=== PATIENT | female | born 1940 | race Caucasian/White ===

== ENCOUNTER 2017-05-22 20:02 | Inpatient (IN) | payer OTHER, MEDICAID ==
[~2017-05-22] VITALS: Ht 157.5 cm; Wt 68.9 kg
[~2017-05-22 20:02] MED LIST: ATOR10TA PO; BACL10TA PO; CYCL7.5T PO; DOCU100C36 PO; MECL-102 PO; NAPR500T4 PO; OMEP40CA37 PO; SUCR1TAB PO; VALS1TAB77 PO
--- NOTE | 2017-05-22 20:15 | NUR ---
JUNI CRANE at pt bedside for MSE.
[2017-05-22] MEDS ORDERED: ASPIRIN 325 MG TABLET PO ONE (20:30)
[2017-05-22] MEDS ORDERED: NITROGLYCERIN 0.4 MG/TAB BOTTLE SL ONE ×2 (20:30→20:43)
--- NOTE | 2017-05-22 20:31 | NUR ---
Pt presents w/ chief c/o chest pain/ Family at bedside. Placed on monitor and pulse ox. EKG completed.
[2017-05-22 20:38] LABS: BASOPHILS # (AUTO) 0.1 K/uL (0.0-8.0); BASOPHILS % (AUTO) 1.4 % (0.0-2.0); EOSINOPHILS # (AUTO) 0.4 K/uL (0.0-0.7); EOSINOPHILS % (AUTO) 5.5 % (0.0-7.0); HEMATOCRIT 37.7 % (31.2-41.9); HEMOGLOBIN 12.9 g/dL (10.9-14.3); LYMPHOCYTES % (AUTO) 29.3 % (20.5-51.5); MEAN CORPUSCULAR HEMOGLOBIN 32.1 uug (24.7-32.8); MEAN CORPUSCULAR HGB CONC 34 g/dL (32.3-35.6); MEAN CORPUSCULAR VOLUME 93.7 fL (75.5-95.3); MONOCYTES # (AUTO) 0.6 K/uL (2.0-10.0); MONOCYTES % (AUTO) 8.8 % (0.0-11.0); NEUTROPHILS # (AUTO) 3.8 K/uL (1.8-8.9); PLATELET COUNT (AUTO) 255 K/uL (179-408); RED BLOOD CELL COUNT(AUTO) 4.03 MIL/uL (3.63-4.92); WHITE BLOOD COUNT (AUTO) 6.9 K/uL (3.8-11.8)
[2017-05-22] MEDS ORDERED: ASPIRIN 325 MG TABLET ONE (20:43)
[2017-05-22] MEDS ORDERED: LABETALOL HCL 100 MG/20 ML VIAL IV ONE ×2 (20:45→22:15)
[2017-05-22 20:47] LABS: CARBON DIOXIDE 23 mmol/L (21-32); CHLORIDE 96 mmol/L (98-107); CREATININE 0.7 mg/dL (0.6-1.3); GLUCOSE 97 mg/dL (74-106); POTASSIUM 3.6 mmol/L (3.5-5.1); UREA NITROGEN, BLOOD 19 mg/dL (7-18)
--- NOTE | 2017-05-22 20:50 | NUR ---
patient noted with blood pressure difference in both upper extremities upon jewel stripper: @2036 - L arm 160/101 @2038- R arm 136/86 ER MD aware of issue. Reassessment pending. Patient in bed, stable. @2046- L arm 142/75 @2047- R arm 109/74 ER MD aware. Patient awaiting CTA Chest/Pelvis. Radiology aware. Consent complete in chart. Patient denies chest pain at this time. Will continue to monitor.
[2017-05-22 20:59] LABS: ALANINE AMINOTRANSFERASE 28 U/L (14-59); ALKALINE PHOSPHATASE 73 U/L (50-136); ASPARTATE AMINOTRANSFERASE 33 U/L (15-37); BILIRUBIN,DIRECT 0.1 mg/dL (0.0-0.2); BILIRUBIN,TOTAL 0.4 mg/dL (0.2-1.0); TOTAL PROTEIN, SERUM 8.1 g/dL (6.4-8.2)
[2017-05-22] MEDS ORDERED: LABETALOL HCL 100 MG/20 ML VIAL ONE (21:02)
[2017-05-22] MEDS ORDERED: IOHEXOL 350 100 ML INFUS..BTL ONE (21:11)
[2017-05-22] MEDS ORDERED: NORMAL SALINE FLUSH 10 ML DISP.SYRIN ONE (21:11)
[2017-05-22] MEDS ORDERED: ONDANSETRON 4 MG/2 ML VIAL IV ONE (21:30)
[2017-05-22] MEDS ORDERED: MORPHINE SULFATE 2 MG/1 ML DISP.SYRIN IV ONE (21:30)
[2017-05-22] MEDS ORDERED: MORPHINE SULFATE 4 MG/1 ML DISP.SYRIN ONE (21:54)
[2017-05-22] MEDS ORDERED: ONDANSETRON 4 MG/2 ML VIAL ONE (21:54)
[2017-05-22] MEDS ORDERED: NITROGLYCERIN OINT 1 GM PACKET TP ONE ×2 (22:15→22:36)
--- NOTE | 2017-05-22 22:36 | NUR ---
Pt taken down to CT accompanied by RN.
--- NOTE | 2017-05-22 23:39 | NUR ---
Mitul tong in [facility] - 05/23/[address] at [address] WALDRON SPEAKING WITH NEGRITA MERIDA.
[2017-05-23] MEDS ORDERED: NITROGLYCERIN 0.4 MG/TAB BOTTLE SL PRN (01:00)
[2017-05-23] MEDS ORDERED: MORPHINE SULFATE 2 MG/1 ML DISP.SYRIN IV PRN (01:00)
[2017-05-23] MEDS ORDERED: ONDANSETRON 4 MG/2 ML VIAL IV PRN (01:00)
[2017-05-23] MEDS: ASPIRIN 81 MG TAB.CHEW PO SCH ×2 (01:00→09:01)
--- NOTE | 2017-05-23 01:00 | NUR ---
Report given to Elizabeth SUAREZ , charge nurse for telemetry
--- NOTE | 2017-05-23 01:03 | NUR ---
ER spoke w/ Dr Castellanos. Patient is cleared for admission to Telemetry. Dx: NSTEMI. Belongings list complete. Report to non destructive evaluation manager , Elizabeth complete. Patient going to room 204.
[2017-05-23] MEDS ORDERED: VALS1TAB8 PO (01:28)
[2017-05-23] MEDS ORDERED: MECL-102 PO (01:28)
[2017-05-23] MEDS ORDERED: METH2.5T PO (01:28)
[2017-05-23] MEDS ORDERED: CARV25TA2 PO (01:28)
[2017-05-23] MEDS ORDERED: DIAZ5TAB4 PO (01:28)
[2017-05-23] MEDS ORDERED: ATOR20TA PO (01:28)
[2017-05-23] MEDS ORDERED: LORA10TA7 PO (01:28)
[2017-05-23] MEDS ORDERED: SULF500T8 PO (01:28)
[2017-05-23] MEDS ORDERED: ASPIRIN 81 MG TAB.CHEW PO ONE (01:30)
[2017-05-23] MEDS ORDERED: METOPROLOL TARTRATE 25 MG TABLET PO ONE (01:30)
--- NOTE | 2017-05-23 01:40 | NUR ---
PT ARRIVED IN TELEMETRY UNIT ALERT AWAKE AND ORIENTED WITH INVERTED T WAVES WITH OCCASSIONAL PACS. PT STATES MINOR CHEST PAIN NOW AT 3/10. ABLE TO FOLLOW SIMPLE COMMANDS WITHOUT DIFFICULTY. ON 2L/MIN VIA N/C. AWAITING ADMITTING ORDERS AT THIS TIME. CONTINUE TO MONITOR. CALL LIGHT PLACED WITHIN REACH.
[2017-05-23 02:09] VITALS: BP 133/69
[2017-05-23] MEDS: ENOXAPARIN SODIUM 80 MG/0.8 ML DISP.SYRIN SQ SCH ×2 (02:27→13:20)
[2017-05-23] MEDS ORDERED: ENOXAPARIN SODIUM 80 MG/0.8 ML DISP.SYRIN SQ ONE (02:39)
[2017-05-23] MEDS ORDERED: METOPROLOL TARTRATE 25 MG TABLET ONE (02:40)
[2017-05-23] MEDS ORDERED: ASPIRIN 81 MG TAB.CHEW ONE (02:41)
--- NOTE | 2017-05-23 03:15 | NUR ---
PT'S TROPONIN LEVELS 10.[address] RIVERA PAGED AT THIS TIME. PT DENIES ANY INCREASED CHEST PAIN AT THIS TIME. CONTINUE TO MONITOR.
--- NOTE | 2017-05-23 03:40 | NUR ---
2ND ATTEMPT MADE TO PAGE DR RIVERA REGARDING TROPONIN LEVELS.
--- NOTE | 2017-05-23 04:08 | NUR ---
DR RIVERA MADE AWARE AND STATED TO FOLLOW UP WITH CREDIT RISK ANALYST METAL MACHINE OPERATOR TO ASSESS PT IF NEEDED FURTHER FOR CARDIAC CATH. PT ASLEEP IN NO ACUTE DISTRESS AT THIS TIME.
[2017-05-23 04:32] VITALS: BP 144/72
--- NOTE | 2017-05-23 04:41 | NUR ---
DR RIVERA MADE AWARE OF RECENT STAT EKG RESULTS. STATED TO CONTINUE TO FOLLOW UP WITH DRY WALL INSTALLATIONS MECHANIC STAFF NURSE ANESTHETIST. DR RANDALL MADE AWARE OF RECENT TROPONIN LEVELS AND PT DX. DR RANDALL ASKED IF PT HAD PREVIOUSLY RECEIVED INJECTION OF LOVENOX UPON ADMISSION. STATED TO CONTINUE SAME ROUTINE ORDERED MEDICATIONS AT THIS TIME. NO NEED FOR RIGHT AWAY CARDIAC CATH BUT STATED PT MAY EVENTUALLY NEED ONE LATER ON. PT IN ROOM IN NO ACUTE DISTRESS AND DENIES ANY FURTHER CHEST PAIN AT THIS TIME. CONTINUE TO MONITOR. BP 144/72. P 56 R 20 T 98.1 AND OXYGEN 99% VIA 2L/MIN. CALL LIGHT PLACED WITHIN REACH.
--- NOTE | 2017-05-23 05:30 | NUR ---
PT IN ROOM ASLEEP IN NO ACUTE DISTRESS OR INCREASED CHEST PAIN SINCE ADMISSION. DR RIVERA AND DR CHACON AWARE OF PT'S CURRENT SITUATION. PT REMINDED TO ASK FOR ASSISTANCE WHEN NEEDED AND TO ENCOURAGE TO REQUEST FOR HEP WHEN INCREASED CHEST PAIN NOTED. CONTINUE TO MONITOR. CALL LIGHT PLACED WITHIN REACH.
--- NOTE | 2017-05-23 07:20 | NUR ---
Received client in bed awake, alert and oriented times 4. Bed at lowest position for safety, call light within reach for assistance. Client states no chest pain, just soreness. Client states a headache. No SOB noted, no apparent signs and symptoms of distress or discomfort. No IV hydration running. Three IV lines in place, 18g on both the right and left AC and one 18g on the right wrist
[2017-05-23] MEDS ORDERED: METOPROLOL TARTRATE 25 MG TABLET PO SCH ×2 (09:00→09:06)
[2017-05-23] MEDS: ACETAMINOPHEN 325 MG TABLET PO PRN ×2 (09:01→14:11)
--- NOTE | 2017-05-23 09:05 | NUR ---
DVT pump ordered
--- NOTE | 2017-05-23 09:18 | NUR ---
DVT pumps in place and running
--- NOTE | 2017-05-23 10:55 | NUR ---
Received call from lab, critical lab values for troponin are 24.663. LIFT TRUCK OPERATOR was in the room with client and the lab values were relied to her. LIFT TRUCK OPERATOR stated that she would rely the lab values to MD. Client apparent coherent, alert, awake and oriented time 4.
--- NOTE | 2017-05-23 11:02 | NUR ---
Tylenol give for headache. Client states no chest pain but feels soreness around chest area. No apparent signs and symptoms of SOB, distress or discomfort. States she would like to rest
[2017-05-23 11:20] VITALS: BP 99/50
--- NOTE | 2017-05-23 12:06 | NUR ---
Informed DONTRELL Massey to contact Dr Rivera to make sure he is aware of the increasing troponin levels and low BP
[2017-05-23] MEDS ORDERED: ASPI-605 PO (13:39)
--- NOTE | 2017-05-23 13:40 | NUR ---
Pneumococcal vaccine and influenza vaccinee ordered. aware
[2017-05-23] MEDS ORDERED: PNEUMOCOCCAL 23-VAL P-SAC VAC 0.5 ML VIAL IM ONE (13:45)
[2017-05-23] MEDS ORDERED: INFLUENZA VACCINE 2017-2018 0.5 ML DISP.SYRIN IM ONE (13:45)
--- NOTE | 2017-05-23 13:57 | NUR ---
Report given to Lucrecia at [facility]
--- NOTE | 2017-05-23 14:54 | NUR ---
Report given to Semiconductor Technician at [facility]. Client is in route to [facility] accompanied by two organ tuner and a transporter, daughter by her side and a male family member as well. Client is stable, current pain levels 3/10 headache. No chest pain. O2 via NC at 2L. No apparent signs and symptoms of SOB, distress or discomfort. Client was discharged with orders by
== END 2017-05-23 14:50 | disposition short-term general hospital (02) | DRG 280 ==
LOC: ER 20:02 → TELE 05-23 01:06
PROVIDERS: ADMIT Internal Medicine; ATTEND Nurse Practitioner Acute Care
DX: I21.4 Non-ST elevation (NSTEMI) myocardial infarction (principal); I50.33 Acute on chronic diastolic (congestive) heart failure; E87.1 Hypo-osmolality and hyponatremia; E83.51 Hypocalcemia; J98.11 Atelectasis; I11.0 Hypertensive heart disease with heart failure; Z79.899 Other long term (current) drug therapy; Z86.73 Personal history of transient ischemic attack (TIA), and cerebral infarction without residual deficits; Z90.49 Acquired absence of other specified parts of digestive tract; H81.10 Benign paroxysmal vertigo, unspecified ear; Z86.19 Personal history of other infectious and parasitic diseases; I77.819 Aortic ectasia, unspecified site; I70.0 Atherosclerosis of aorta; E78.5 Hyperlipidemia, unspecified; K40.20 Bilateral inguinal hernia, without obstruction or gangrene, not specified as recurrent; K44.9 Diaphragmatic hernia without obstruction or gangrene; K57.30 Diverticulosis of large intestine without perforation or abscess without bleeding
CPT/HCPCS: 36415; 70030-TC; 71045; 85025; 85730; 86850; 86900; 86901; 90686; 90732; 93005; 93307; A4663; J1650; J2270; J2405; J3490; Q9967

== ENCOUNTER 2018-10-11 16:57 | Inpatient (IN) | payer OTHER, MEDICAID ==
[~2018-10-11] VITALS: Ht 165.1 cm; Wt 70.5 kg
[~2018-10-11 16:57] MED LIST changes: +ASPI-605 PO; -ATOR10TA PO; +ATOR20TA PO; +CARV25TA2 PO; +DIAZ5TAB4 PO; +LORA10TA7 PO; +METH2.5T PO; +NAPR-1009 PO; -NAPR500T4 PO; +SULF500T8 PO; -VALS1TAB77 PO; +VALS1TAB8 PO
--- NOTE | 2018-10-11 17:42 | NUR ---
Dr Miles at the bedside for MSE.
[2018-10-11] MEDS ORDERED: IV NORMAL SALINE 500 ML BAG IV ONE (17:45)
[2018-10-11 18:03] LABS: BASOPHILS # (AUTO) 0.1 K/uL (0.0-8.0); BASOPHILS % (AUTO) 1.4 % (0.0-2.0); EOSINOPHILS # (AUTO) 0.2 K/uL (0.0-0.7); EOSINOPHILS % (AUTO) 3.1 % (0.0-7.0); HEMATOCRIT 35.4 % (31.2-41.9); HEMOGLOBIN 11.8 g/dL (10.9-14.3); LYMPHOCYTES # (AUTO) 1.8 K/uL (20.0-40.0); LYMPHOCYTES % (AUTO) 31.6 % (20.5-51.5); MEAN CORPUSCULAR HEMOGLOBIN 30.4 uug (24.7-32.8); MEAN CORPUSCULAR HGB CONC 33 g/dL (32.3-35.6); MEAN CORPUSCULAR VOLUME 91.4 fL (75.5-95.3); MONOCYTES # (AUTO) 0.7 K/uL (2.0-10.0); MONOCYTES % (AUTO) 11.4 % (0.0-11.0); NEUTROPHILS % (AUTO) 52.5 % (38.5-71.5); PLATELET COUNT (AUTO) 252 K/uL (179-408); RED BLOOD CELL COUNT(AUTO) 3.87 MIL/uL (3.63-4.92); WHITE BLOOD COUNT (AUTO) 5.8 K/uL (3.8-11.8)
[2018-10-11 18:11] LABS: CARBON DIOXIDE 24 mmol/L (21-32); CHLORIDE 96 mmol/L (98-107); CREATININE 0.8 mg/dL (0.6-1.3); GLUCOSE 95 mg/dL (74-106); POTASSIUM 3.3 mmol/L (3.5-5.1); UREA NITROGEN, BLOOD 13 mg/dL (7-18)
[2018-10-11 18:28] LABS: ALANINE AMINOTRANSFERASE 39 U/L (14-59); ALKALINE PHOSPHATASE 59 U/L (50-136); ASPARTATE AMINOTRANSFERASE 43 U/L (15-37); BILIRUBIN,DIRECT 0.2 mg/dL (0.0-0.2); BILIRUBIN,TOTAL 0.8 mg/dL (0.2-1.0); TOTAL PROTEIN, SERUM 7.6 g/dL (6.4-8.2)
[2018-10-11] MEDS ORDERED: ASPIRIN 81 MG TAB.CHEW PO ONE (18:30)
[2018-10-11] MEDS ORDERED: ASPIRIN 81 MG TAB.CHEW ONE (18:35)
--- NOTE | 2018-10-11 18:42 | NUR ---
Dr Miles spoke to Dr Trimble for admit. Awaiting for insurance clearance.
[2018-10-11] MEDS ORDERED: HYDR-4077 PO (18:55)
[2018-10-11] MEDS ORDERED: LOSA1TAB39 PO (18:55)
[2018-10-11] MEDS ORDERED: METR-147 PO (18:55)
[2018-10-11] MEDS ORDERED: LORA1TAB PO (18:55)
[2018-10-11] MEDS ORDERED: FOLI1TAB16 PO (18:56)
[2018-10-11] MEDS ORDERED: OXYB5TAB PO (18:56)
--- NOTE | 2018-10-11 18:59 | NUR ---
Report given to Lazaro SUAREZ night nurse.
[2018-10-11] MEDS ORDERED: ONDANSETRON 4 MG/2 ML VIAL IV PRN (19:00)
[2018-10-11] MEDS ORDERED: NITROGLYCERIN 0.4 MG/TAB BOTTLE SL PRN (19:00)
[2018-10-11 20:30] LABS: *BILIRUBIN,URIN NEGATIVE (NEGATIVE); *BLOOD, URINE 2+ (NEGATIVE); *CLARITY,URINE SLIGHTLY CLOUDY (CLEAR); *COLOR,URINE YELLOW (YELLOW); *KETONES,URINE NEGATIVE (NEGATIVE); *UROBILINOGEN,URINE 0.2 E.U./dl (NORMAL); LEUKOCYTE ESTERASE ,URINE 2+ (NEGATIVE); NITRITE, URINE NEGATIVE (NEGATIVE); PH,URINE 6.5 (5.0-8.0); UGLUCOSE NEGATIVE (NEGATIVE)
[2018-10-11 20:48] LABS: BACTERIA,URINE MANY /HPF (NONE SEEN); SQUAMOUS EPITHELIAL CELL,UR FEW /HPF (NONE SEEN)
--- NOTE | 2018-10-11 20:52 | NUR ---
Patient transferred to [facility] in stable condition.
[2018-10-11 21:13] VITALS: BP 171/87
--- NOTE | 2018-10-11 21:15 | NUR ---
Received patient from ER. Dx: NSTEMI. Patient is A/Ox4. Patient is Lithuanian speaking, but can understand most Gambian. Belongings list and belongings brought with patient. Medications brought with patient. Heplock on the left AC is intact and patent. Skin is intact. Patient is able to ambulate, but instructed patient that since she had a near syncopal episode to call before she gets up to go to the restroom. Safety measures initiated. Bed is low and locked call light within reach. Oriented patient to room and unit. Will continue with admission process.
[2018-10-11] MEDS: METOPROLOL TARTRATE 25 MG TABLET PO SCH (21:32)
[2018-10-12 00:03] VITALS: BP 120/63
[2018-10-12 04:10] VITALS: BP 122/64
--- NOTE | 2018-10-12 05:48 | NUR ---
Patient slept well throughout shift. No signs of acute distress noted. No complaints of pain or SOB. Patient was able to ambulate to restroom with steady gait. Vitals are WNL. Patient is a-fib controlled on the TELE monitor with HR at 62 BPM. All needs were met. Safety measures given.
[2018-10-12 06:31] LABS: BASOPHILS # (AUTO) 0.1 K/uL (0.0-8.0); BASOPHILS % (AUTO) 1.6 % (0.0-2.0); EOSINOPHILS # (AUTO) 0.2 K/uL (0.0-0.7); EOSINOPHILS % (AUTO) 4.9 % (0.0-7.0); HEMATOCRIT 35.3 % (31.2-41.9); HEMOGLOBIN 11.7 g/dL (10.9-14.3); LYMPHOCYTES # (AUTO) 1.5 K/uL (20.0-40.0); LYMPHOCYTES % (AUTO) 31.6 % (20.5-51.5); MEAN CORPUSCULAR HEMOGLOBIN 30.4 uug (24.7-32.8); MEAN CORPUSCULAR HGB CONC 33 g/dL (32.3-35.6); MEAN CORPUSCULAR VOLUME 91.6 fL (75.5-95.3); MONOCYTES # (AUTO) 0.5 K/uL (2.0-10.0); MONOCYTES % (AUTO) 9.5 % (0.0-11.0); NEUTROPHILS # (AUTO) 2.5 K/uL (1.8-8.9); NEUTROPHILS % (AUTO) 52.4 % (38.5-71.5); PLATELET COUNT (AUTO) 237 K/uL (179-408); RED BLOOD CELL COUNT(AUTO) 3.85 MIL/uL (3.63-4.92); WHITE BLOOD COUNT (AUTO) 4.8 K/uL (3.8-11.8)
[2018-10-12 06:43] LABS: CARBON DIOXIDE 24 mmol/L (21-32); CHLORIDE 102 mmol/L (98-107); CHOLESTEROL 126 mg/dL (<200); CREATININE 0.8 mg/dL (0.6-1.3); GLUCOSE 78 mg/dL (74-106); HDL CHOLESTEROL 59 mg/dL (40-60); MAGNESIUM 1.6 mg/dL (1.8-2.4); PHOSPHOROUS 4.2 mg/dL (2.5-4.9); POTASSIUM 3.6 mmol/L (3.5-5.1); TRIGLYCERIDES 74 MG/DL (30-150); UREA NITROGEN, BLOOD 13 mg/dL (7-18)
[2018-10-12] MEDS: METOPROLOL TARTRATE 25 MG TABLET PO SCH (08:28)
[2018-10-12] MEDS ORDERED: ASPIRIN 81 MG TAB.CHEW PO SCH (09:00)
[2018-10-12] MEDS: MAGNESIUM SULFATE/D5W 100 ML IV SCH ×2 (10:05→11:16)
[2018-10-12] MEDS ORDERED: MECLIZINE HCL 25 MG TABLET PO PRN (10:15)
[2018-10-12] MEDS ORDERED: METHOTREXATE SODIUM 2.5 MG TABLET PO SCH (10:15)
[2018-10-12] MEDS ORDERED: HYDROCHLOROTHIAZIDE 25 MG TABLET PO SCH (10:29)
[2018-10-12] MEDS: LEVOFLOXACIN 500 MG TABLET PO SCH (10:43)
[2018-10-12] MEDS: LOSARTAN POTASSIUM 50 MG TABLET PO SCH (10:44)
[2018-10-12] MEDS: CARVEDILOL 12.5 MG TABLET PO SCH ×2 (10:55→17:10)
[2018-10-12] MEDS: APIXABAN 5 MG TABLET PO SCH ×2 (11:17→17:11)
[2018-10-12 12:07] VITALS: BP 123/70
[2018-10-12] MEDS ORDERED: hydrALAZINE HCL 50 MG TABLET PO SCH (14:00)
[2018-10-12 15:45] VITALS: BP 109/66
[2018-10-12] MEDS ORDERED: METRONIDAZOLE 500 MG TABLET PO SCH (17:00)
[2018-10-12] MEDS ORDERED: CARVEDILOL 25 MG TABLET PO SCH (17:00)
--- NOTE | 2018-10-12 19:00 | NUR ---
Patient is AO4, No signs of acute distress noted. No complaints of pain or SOB. Patient was able to ambulate to restroom with steady gait. Vitals are WNL. Patient is a-fib controlled on the TELE monitor with HR at 60-70 BPM. Safety maintained
--- NOTE | 2018-10-12 19:20 | NUR ---
RECEIVED PT AWAKE. ALERT AND ORIENTEDX4. PT SHOWS NO SIGNS OF ACUTE DISTRESS. IV INTACT. SAFETY AND COMFORT PROVIDED. WILL CONTINUE TO MONITOR.
[2018-10-12 20:01] VITALS: BP 112/66
[2018-10-12] MEDS: ATORVASTATIN 20 MG TABLET PO SCH (20:23)
[2018-10-13] VITALS: BP 125/74
[2018-10-13 04:00] VITALS: BP 139/78
[2018-10-13] MEDS: LEVOFLOXACIN 500 MG TABLET PO SCH (05:26)
[2018-10-13] MEDS ORDERED: MAGNESIUM HYDROXIDE 30 ML LIQUID UDC PO PRN (05:30)
--- NOTE | 2018-10-13 06:03 | NUR ---
PT SLEPT THROUGHOUT THE SHIFT. PT SHOWS NO SIGNS OF ACUTE DISTRESS. PRESCRIBED MEDICATION GIVEN AND PT TOLERATED IT WELL. DR. CALHOUN ORDERED MILK OF MAGNESIA AT 2200H BECAUSE PT COMPLAINING SHE DOESN'T HAVE ANY BOWEL MOVEMENT FOR 3 DAYS. GAVE ALSO PRUNE JUICE TO HELP HER . PT COMPLIANT WITH CARE. SAFETY AND COMFORT PROVIDED. ALL NEEDS ARE MET. WILL ENDORSE ACCORDINGLY TO INCOMING NURSE FOR CONTINUITY OF CARE.
[2018-10-13 06:38] LABS: CARBON DIOXIDE 25 mmol/L (21-32); CHLORIDE 101 mmol/L (98-107); CREATININE 0.8 mg/dL (0.6-1.3); GLUCOSE 81 mg/dL (74-106); MAGNESIUM 1.8 mg/dL (1.8-2.4); POTASSIUM 3.6 mmol/L (3.5-5.1); UREA NITROGEN, BLOOD 14 mg/dL (7-18)
--- NOTE | 2018-10-13 07:30 | NUR ---
PATIENT AO4, PT SHOWS NO SIGNS OF ACUTE DISTRESS. SAFETY AND COMFORT REINFORCED. CONTINUITY OF CARE.
[2018-10-13] MEDS: LOSARTAN POTASSIUM 50 MG TABLET PO SCH (08:06)
[2018-10-13] MEDS: CARVEDILOL 12.5 MG TABLET PO SCH ×2 (08:06→17:03)
[2018-10-13] MEDS: APIXABAN 5 MG TABLET PO SCH ×2 (08:07→17:03)
[2018-10-13] MEDS: OXYBUTYNIN XL 5 MG TABSR PO SCH (08:07)
[2018-10-13] MEDS: LORATADINE 10 MG TABLET PO SCH (08:07)
[2018-10-13] MEDS ORDERED: FOLIC ACID 1 MG TABLET PO SCH (09:00)
[2018-10-13] MEDS ORDERED: LORAZEPAM 1 MG TABLET PO PRN (09:00)
[2018-10-13] MEDS ORDERED: Medication Not On Formulary EA (Losartan/Hydrochlorothiazide (Losartan-Hctz 100-25 Mg Ta PO SCH (09:00)
[2018-10-13 11:30] VITALS: BP 102/60
[2018-10-13 16:10] VITALS: BP 125/61
[2018-10-13] MEDS ORDERED: HYDROCODONE/APAP 5-325MG TABLET PO PRN (16:45)
--- NOTE | 2018-10-13 18:37 | NUR ---
PATIENT AO4, PT SHOWS NO SIGNS OF ACUTE DISTRESS. PATIENT COMPLAINED OF PAIN IN LOWER EXTREMITIES AND ORDER FROM DONTRELL BARAHONA WAS RECEIVED (NORCO IS GIVEN AND WORKED WELL) DVT STUDIES ARE DONE AND NEGATIVE SAFETY AND COMFORT MAINTAINED
--- NOTE | 2018-10-13 19:30 | NUR ---
patient received lying in bed with family at bedside. no signs of acute distress at this time. safety and comfort measures provided. will continue care.
[2018-10-13 20:16] VITALS: BP 125/63
[2018-10-13] MEDS: ATORVASTATIN 20 MG TABLET PO SCH (20:22)
[2018-10-14 00:17] VITALS: BP 105/47
[2018-10-14] MEDS: LEVOFLOXACIN 500 MG TABLET PO SCH (05:22)
--- NOTE | 2018-10-14 05:52 | NUR ---
patient intermittently sleeping. iv intact and patent. all medications administered and tolerated. safety and comfort measures provided. will endorse care to morning nurse.
[2018-10-14 05:58] VITALS: BP 116/62
[2018-10-14 06:35] LABS: BASOPHILS # (AUTO) 0.1 K/uL (0.0-8.0); BASOPHILS % (AUTO) 1.4 % (0.0-2.0); EOSINOPHILS # (AUTO) 0.5 K/uL (0.0-0.7); HEMOGLOBIN 11.8 g/dL (10.9-14.3); LYMPHOCYTES % (AUTO) 34.3 % (20.5-51.5); MEAN CORPUSCULAR HEMOGLOBIN 30.8 uug (24.7-32.8); MEAN CORPUSCULAR HGB CONC 34 g/dL (32.3-35.6); MEAN CORPUSCULAR VOLUME 91.6 fL (75.5-95.3); MONOCYTES # (AUTO) 0.6 K/uL (2.0-10.0); MONOCYTES % (AUTO) 10.3 % (0.0-11.0); NEUTROPHILS # (AUTO) 2.7 K/uL (1.8-8.9); PLATELET COUNT (AUTO) 236 K/uL (179-408); RED BLOOD CELL COUNT(AUTO) 3.82 MIL/uL (3.63-4.92); WHITE BLOOD COUNT (AUTO) 5.9 K/uL (3.8-11.8)
[2018-10-14 06:51] LABS: CARBON DIOXIDE 24 mmol/L (21-32); CHLORIDE 102 mmol/L (98-107); CREATININE 0.9 mg/dL (0.6-1.3); GLUCOSE 75 mg/dL (74-106); UREA NITROGEN, BLOOD 16 mg/dL (7-18)
--- NOTE | 2018-10-14 07:15 | NUR ---
patient received lying in bed . no signs of acute distress at this time. safety and comfort measures provided. will continue care. vs are stable
[2018-10-14] MEDS: LORATADINE 10 MG TABLET PO SCH (08:01)
[2018-10-14] MEDS: CARVEDILOL 12.5 MG TABLET PO SCH ×2 (08:02→18:00)
[2018-10-14] MEDS: APIXABAN 5 MG TABLET PO SCH ×2 (08:04→16:14)
[2018-10-14] MEDS: OXYBUTYNIN XL 5 MG TABSR PO SCH (08:06)
[2018-10-14] MEDS ORDERED: NITROFURANTOIN/NITROFURAN MAC 100 MG CAPSULE PO SCH (09:00)
[2018-10-14] MEDS ORDERED: LOSARTAN POTASSIUM 25 MG TABLET PO SCH (09:00)
[2018-10-14] MEDS ORDERED: LOSARTAN POTASSIUM 50 MG TABLET PO SCH (09:00)
[2018-10-14] MEDS ORDERED: CARV12.5 PO (10:20)
[2018-10-14] MEDS ORDERED: LOSA25TA27 PO (10:20)
[2018-10-14] MEDS ORDERED: NITR100C6 PO (10:20)
[2018-10-14] MEDS ORDERED: ATOR20TA PO (10:20)
[2018-10-14] MEDS ORDERED: APIX5TAB PO (10:20)
[2018-10-14 12:06] VITALS: BP 118/61
[2018-10-14 15:10] VITALS: BP 108/76
[2018-10-14 18:00] VITALS: BP 108/50
--- NOTE | 2018-10-14 18:23 | NUR ---
dc orders received noted and carried out,dc heplock per md orders.dc instruction given to the pt and family ,pt left the facility via private car in stable condition
[2018-10-15] MEDS ORDERED: METHOTREXATE SODIUM 2.5 MG TABLET PO SCH (09:00)
== END 2018-10-14 18:30 | disposition home or self-care (01) | DRG 281 ==
LOC: ER 16:57 → TELE3 20:41 → MEDSURG3 10-13 20:00
PROVIDERS: ADMIT Internal Medicine; ATTEND Internal Medicine
DX: I48.92 Unspecified atrial flutter (principal); I21.A1 Myocardial infarction type 2; N39.0 Urinary tract infection, site not specified; E44.0 Moderate protein-calorie malnutrition; D68.59 Other primary thrombophilia; J98.11 Atelectasis; I48.91 Unspecified atrial fibrillation; R55 Syncope and collapse; E87.6 Hypokalemia; Z79.82 Long term (current) use of aspirin; I25.5 Ischemic cardiomyopathy; I25.2 Old myocardial infarction; E78.5 Hyperlipidemia, unspecified; B96.20 Unspecified Escherichia coli [E. coli] as the cause of diseases classified elsewhere; Z16.12 Extended spectrum beta lactamase (ESBL) resistance; M06.9 Rheumatoid arthritis, unspecified; Z79.01 Long term (current) use of anticoagulants; Z86.73 Personal history of transient ischemic attack (TIA), and cerebral infarction without residual deficits; Z68.25 Body mass index [BMI] 25.0-25.9, adult; I25.10 Atherosclerotic heart disease of native coronary artery without angina pectoris; I10 Essential (primary) hypertension; E78.00 Pure hypercholesterolemia, unspecified
CPT/HCPCS: 36415; 70030-TC; 70450; 71045; 83605; 83735; 84100; 84443; 85025; 85730; 87040; 87077; 87086; 93005; 97110; 97116; 97530; A4663; G0378; J3475; J7040; J7050; J8597; J8610

== ENCOUNTER 2019-02-12 20:09 | Inpatient (IN) | payer MEDICARE, MEDICAID ==
[~2019-02-12] VITALS: Ht 160 cm; Wt 63.2 kg
[~2019-02-12 20:09] MED LIST changes: +APIX5TAB PO; -ASPI-605 PO; -BACL10TA PO; +CARV12.5 PO; -CYCL7.5T PO; -DIAZ5TAB4 PO; -DOCU100C36 PO; +FOLI1TAB16 PO; +LORA1TAB PO; +LOSA25TA27 PO; -NAPR-1009 PO; +NITR100C6 PO; -OMEP40CA37 PO; +OXYB5TAB4 PO; -SUCR1TAB PO; -SULF500T8 PO; -VALS1TAB8 PO
--- NOTE | 2019-02-12 20:26 | NUR ---
patient came from home. Chief complaint of generalized weakness and loss of energy that started today at 0800. patient stated her last meal was today at 1130. patient was not able to tolerare any PO intake. patient also stated she hasn't been able to produce a bowel movement within the last 3 days. Patient is alert and oriented x4. patient denies any pain/discomfort/respiratory distress at this time.
[2019-02-12] MEDS ORDERED: HYDR-4077 PO (20:29)
[2019-02-12] MEDS ORDERED: LORA1TAB PO (20:29)
[2019-02-12] MEDS ORDERED: DIFL5DRO OP (20:30)
[2019-02-12 20:59] LABS: BASOPHILS # (AUTO) 0.1 K/uL (0.0-8.0); BASOPHILS % (AUTO) 1.1 % (0.0-2.0); EOSINOPHILS # (AUTO) 0.1 K/uL (0.0-0.7); EOSINOPHILS % (AUTO) 2.2 % (0.0-7.0); HEMATOCRIT 37.2 % (31.2-41.9); HEMOGLOBIN 12.5 g/dL (10.9-14.3); LYMPHOCYTES # (AUTO) 1.7 K/uL (20.0-40.0); LYMPHOCYTES % (AUTO) 29.3 % (20.5-51.5); MEAN CORPUSCULAR HEMOGLOBIN 32.4 uug (24.7-32.8); MEAN CORPUSCULAR HGB CONC 34 g/dL (32.3-35.6); MEAN CORPUSCULAR VOLUME 96.5 fL (75.5-95.3); MONOCYTES # (AUTO) 0.5 K/uL (2.0-10.0); MONOCYTES % (AUTO) 9.5 % (0.0-11.0); NEUTROPHILS # (AUTO) 3.3 K/uL (1.8-8.9); NEUTROPHILS % (AUTO) 57.9 % (38.5-71.5); PLATELET COUNT (AUTO) 214 K/uL (179-408); RED BLOOD CELL COUNT(AUTO) 3.86 MIL/uL (3.63-4.92); WHITE BLOOD COUNT (AUTO) 5.7 K/uL (3.8-11.8)
[2019-02-12 21:00] LABS: CREATININE 0.7 mg/dL (0.6-1.3); POTASSIUM 3.4 mmol/L (3.5-5.1)
[2019-02-12 21:06] LABS: *BILIRUBIN,URIN NEGATIVE (NEGATIVE); *BLOOD, URINE NEGATIVE (NEGATIVE); *CLARITY,URINE SLIGHTLY CLOUDY (CLEAR); *COLOR,URINE YELLOW (YELLOW); *KETONES,URINE NEGATIVE (NEGATIVE); *UROBILINOGEN,URINE 0.2 E.U./dl (NORMAL); LEUKOCYTE ESTERASE ,URINE 1+ (NEGATIVE); NITRITE, URINE NEGATIVE (NEGATIVE); UGLUCOSE NEGATIVE (NEGATIVE)
[2019-02-12 21:12] LABS: BILIRUBIN,DIRECT 0.2 mg/dL (0.0-0.2); BILIRUBIN,TOTAL 0.8 mg/dL (0.2-1.0); TOTAL PROTEIN, SERUM 7.2 g/dL (6.4-8.2)
[2019-02-12 21:15] LABS: BACTERIA,URINE MODERATE /HPF (NONE SEEN); MUCUS,URINE FEW /LPF (0-FEW); SQUAMOUS EPITHELIAL CELL,UR MANY /HPF (NONE SEEN)
[2019-02-12] MEDS ORDERED: NITROGLYCERIN OINT 1 GM PACKET TP ONE ×2 (21:17→21:30)
[2019-02-12] MEDS ORDERED: ASPIRIN 81 MG TAB.CHEW ONE (21:17)
--- NOTE | 2019-02-12 21:25 | NUR ---
Call placed to [facility], Jovani Sewell (DONTRELL) has been paged.
[2019-02-12] MEDS ORDERED: ASPIRIN 81 MG TAB.CHEW PO ONE (21:30)
[2019-02-12] MEDS ORDERED: CEFTRIAXONE /D5W 50ML IVPB **ER PYXIS IV ONE (21:33)
[2019-02-12] MEDS ORDERED: CEFTRIAXONE 1 G in IV DEXTROSE 5% 50 ML IV ONE (21:45)
--- NOTE | 2019-02-12 21:51 | NUR ---
VERONICA spoke to Micrima.
--- NOTE | 2019-02-12 21:59 | NUR ---
report given to ERICK Conley.
--- NOTE | 2019-02-12 22:01 | NUR ---
Jovani Sewell BODY TEAM MEMBER at bedside speaking to patient.
[2019-02-12] MEDS ORDERED: LORAZEPAM 1 MG TABLET PO PRN (22:30)
[2019-02-12] MEDS ORDERED: Z GUARD REMEDY PASTE 57 GM TUBE TOP PRN (22:30)
[2019-02-12] MEDS ORDERED: MAGNESIUM HYDROXIDE 30 ML LIQUID UDC PO PRN (22:30)
[2019-02-12] MEDS ORDERED: ONDANSETRON 4 MG/2 ML VIAL IV PRN (22:30)
[2019-02-12] MEDS ORDERED: ACETAMINOPHEN 325 MG TABLET PO PRN (22:30)
[2019-02-12] MEDS ORDERED: HYDROCODONE/APAP 5-325MG TABLET PO PRN (22:30)
[2019-02-12 22:39] VITALS: BP 149/76
[2019-02-12] MEDS ORDERED: MEROPENEM 0.5 G in IV NORMAL SALINE 50 ML IV SCH (23:30)
[2019-02-13 00:33] VITALS: BP 134/84
[2019-02-13] MEDS ORDERED: MEROPENEM 500 MG VIAL IV ONE (00:38)
[2019-02-13] MEDS ORDERED: MEROPENEM 0.5 G in IV NORMAL SALINE 50 ML IV SCH ×2 (01:30→06:00)
[2019-02-13 04:45] VITALS: BP 150/85
[2019-02-13 05:47] LABS: BASOPHILS # (AUTO) 0.1 K/uL (0.0-8.0); BASOPHILS % (AUTO) 2.3 % (0.0-2.0); EOSINOPHILS # (AUTO) 0.1 K/uL (0.0-0.7); EOSINOPHILS % (AUTO) 2.4 % (0.0-7.0); HEMATOCRIT 36.4 % (31.2-41.9); HEMOGLOBIN 12.3 g/dL (10.9-14.3); LYMPHOCYTES # (AUTO) 1.6 K/uL (20.0-40.0); LYMPHOCYTES % (AUTO) 33.6 % (20.5-51.5); MEAN CORPUSCULAR HEMOGLOBIN 32.5 uug (24.7-32.8); MEAN CORPUSCULAR HGB CONC 34 g/dL (32.3-35.6); MEAN CORPUSCULAR VOLUME 96.1 fL (75.5-95.3); MONOCYTES # (AUTO) 0.4 K/uL (2.0-10.0); MONOCYTES % (AUTO) 9.1 % (0.0-11.0); NEUTROPHILS # (AUTO) 2.5 K/uL (1.8-8.9); NEUTROPHILS % (AUTO) 52.6 % (38.5-71.5); PLATELET COUNT (AUTO) 189 K/uL (179-408); RED BLOOD CELL COUNT(AUTO) 3.78 MIL/uL (3.63-4.92); WHITE BLOOD COUNT (AUTO) 4.8 K/uL (3.8-11.8)
--- NOTE | 2019-02-13 05:56 | NUR ---
patient received from ER. a/o x2. no signs of acute distress and v/s stable throughout shift. safety and comfort measures provided at all times. denies chest pain. ID band on. IV intact and patent. belongings list completed and signed. all medications administered and tolerated well. belongings list signed. a/o x2.
[2019-02-13 06:04] LABS: CREATININE 0.7 mg/dL (0.6-1.3); MAGNESIUM 1.6 mg/dL (1.8-2.4); PHOSPHOROUS 3.7 mg/dL (2.5-4.9); POTASSIUM 3.3 mmol/L (3.5-5.1)
[2019-02-13] MEDS: MEROPENEM 0.5 G in IV NORMAL SALINE 50 ML IV SCH ×3 (08:42→23:30)
[2019-02-13] MEDS: hydrALAZINE HCL 50 MG TABLET PO SCH ×3 (08:42→17:18)
[2019-02-13] MEDS: CARVEDILOL 12.5 MG TABLET PO SCH ×2 (08:42→17:18)
[2019-02-13] MEDS ORDERED: APIXABAN 5 MG TABLET PO ONE (09:00)
[2019-02-13] MEDS ORDERED: POTASSIUM CHLORIDE 20 MEQ POWDER PACKET PO ONE (10:45)
[2019-02-13] MEDS ORDERED: INFLUENZA VACCINE 2019-2020 0.5 ML DISP.SYRIN IM ONE (11:00)
[2019-02-13 11:40] VITALS: BP 94/60
[2019-02-13] MEDS: MAGNESIUM SULFATE/D5W 100 ML IV SCH ×2 (13:24→15:50)
[2019-02-13 15:54] VITALS: BP 141/67
[2019-02-13 19:48] VITALS: BP 98/48
[2019-02-13] MEDS ORDERED: MOXI3DRO10 RIGHTEYE (20:08)
[2019-02-13] MEDS ORDERED: NEPA1.7D OP (20:08)
[2019-02-13] MEDS ORDERED: PRED5DRO16 RIGHTEYE (20:08)
[2019-02-13] MEDS ORDERED: BESI5DRO EACHEYE (20:08)
[2019-02-13] MEDS ORDERED: DIFL5DRO OP (20:08)
[2019-02-13] MEDS ORDERED: CEFTRIAXONE 1 G in IV DEXTROSE 5% 50 ML IV SCH (21:00)
[2019-02-13] MEDS: ATORVASTATIN 20 MG TABLET PO SCH (21:17)
[2019-02-14] VITALS (8 sets, daily range): BP systolic 108–129; BP diastolic 54–78
[2019-02-14 06:51] LABS: BASOPHILS # (AUTO) 0.1 K/uL (0.0-8.0); BASOPHILS % (AUTO) 1.2 % (0.0-2.0); EOSINOPHILS # (AUTO) 0.2 K/uL (0.0-0.7); HEMATOCRIT 36.1 % (31.2-41.9); HEMOGLOBIN 12.2 g/dL (10.9-14.3); LYMPHOCYTES # (AUTO) 1.8 K/uL (20.0-40.0); LYMPHOCYTES % (AUTO) 35.3 % (20.5-51.5); MEAN CORPUSCULAR HEMOGLOBIN 32.9 uug (24.7-32.8); MEAN CORPUSCULAR HGB CONC 34 g/dL (32.3-35.6); MEAN CORPUSCULAR VOLUME 97.8 fL (75.5-95.3); MONOCYTES # (AUTO) 0.4 K/uL (2.0-10.0); MONOCYTES % (AUTO) 8.2 % (0.0-11.0); NEUTROPHILS # (AUTO) 2.7 K/uL (1.8-8.9); NEUTROPHILS % (AUTO) 52.3 % (38.5-71.5); PLATELET COUNT (AUTO) 195 K/uL (179-408); RED BLOOD CELL COUNT(AUTO) 3.69 MIL/uL (3.63-4.92); WHITE BLOOD COUNT (AUTO) 5.1 K/uL (3.8-11.8)
--- NOTE | 2019-02-14 06:58 | NUR ---
Pt resting well in between care; no acute distress; repositioned for comfort; assisted to meet hygiene needs; needs assisted; safety maintained; eye drops received and family gave it to her initially;sent to the pharmacy including [facility];
[2019-02-14 07:05] LABS: THYROID STIMULATING HORMONE 4.026 mIU/mL (0.358-3.740)
[2019-02-14 07:25] LABS: CREATININE 0.7 mg/dL (0.6-1.3)
[2019-02-14] MEDS ORDERED: INFLUENZA VACCINE 2019-2020 0.5 ML DISP.SYRIN IM ONE (07:30)
--- NOTE | 2019-02-14 08:00 | NUR ---
Pt on ABX Merrem. Pt prefers to have flu shot prior to discharge. Awaiting eyedrops medication for her cataract surgery right eye. Pt denies any c/o pain. Legs elevated +1 edema noted. PT is in no acute distress. IV intact.
[2019-02-14] MEDS: MEROPENEM 0.5 G in IV NORMAL SALINE 50 ML IV SCH ×3 (08:22→23:37)
[2019-02-14] MEDS: hydrALAZINE HCL 50 MG TABLET PO SCH ×3 (08:28→16:33)
[2019-02-14] MEDS: CARVEDILOL 12.5 MG TABLET PO SCH ×2 (08:29→16:33)
[2019-02-14] MEDS ORDERED: DUREZOL LEFTEYE PRN (09:00)
[2019-02-14] MEDS ORDERED: APIXABAN 5 MG TABLET PO ONE (09:00)
[2019-02-14] MEDS ORDERED: prednisoLONE ACET 1% OPHT DROP 5 ML BOTTLE LEFTEYE SCH (09:00)
[2019-02-14] MEDS ORDERED: FOLIC ACID 1 MG TABLET PO SCH (09:00)
[2019-02-14] MEDS: MOXIFLOXACIN 0.5% RIGHTEYE SCH ×4 (10:00→20:31)
[2019-02-14] MEDS: BESIVANCE LEFTEYE SCH ×3 (10:01→16:35)
[2019-02-14] MEDS: PREDNISOLONE 1% RIGHTEYE SCH ×4 (10:01→20:31)
[2019-02-14] MEDS ORDERED: BISACODYL 10 MG SUPP.RECT RC ONE (10:30)
[2019-02-14] MEDS: DOCUSATE SODIUM 100 MG CAPSULE PO SCH ×2 (12:00→16:33)
[2019-02-14] MEDS: [UNRECOGNIZED DRUG - OTHER] PO SCH (16:38)
--- NOTE | 2019-02-14 18:36 | NUR ---
PT c/o dizziness took vs 115/47 hr 73 resp 18. Call light is within reach.
--- NOTE | 2019-02-14 19:30 | NUR ---
Received patient in bed awake A&Ox4. No c/o pain at this time. c/o dizziness, VS WNL. Heplock on L AC intact and patent. Safety measures observed. Call light in reach
[2019-02-14] MEDS: ATORVASTATIN 20 MG TABLET PO SCH (20:30)
[2019-02-14] MEDS ORDERED: MISCELLANEOUS MED RIGHTEYE SCH (21:00)
[2019-02-14] MEDS ORDERED: MISCELLANEOUS MED LEFTEYE PRN (21:00)
[2019-02-14] MEDS ORDERED: ILEVRO RIGHTEYE SCH (21:00)
[2019-02-14] MEDS ORDERED: MECLIZINE HCL 25 MG TABLET PO PRN (21:30)
--- NOTE | 2019-02-14 21:30 | NUR ---
N.o from Melod[facility] JON for Meclizie 25mg PO Q8 PRN for dizziness and to check for Orthostatic BP.
[2019-02-15 04:42] VITALS: BP 117/72
--- NOTE | 2019-02-15 06:52 | NUR ---
Patient slept well. No complaints of pain and dizziness at this time. All needs attended. Will endorse accordingly
--- NOTE | 2019-02-15 07:15 | NUR ---
RECEIVED PATIENT RESTING IN BED, PATIENT SLEEPING. NO ACUTE DISTRESS NOTED. BED IN LOWEST POSITION, SIDE RAILS UP X2, CALL IGHT WITHIN REACH. WILL CONTINUE TO MONITOR.
[2019-02-15] MEDS: MEROPENEM 0.5 G in IV NORMAL SALINE 50 ML IV SCH ×2 (08:28→16:18)
[2019-02-15] MEDS: DOCUSATE SODIUM 100 MG CAPSULE PO SCH ×2 (08:28→17:48)
[2019-02-15] MEDS: BESIVANCE LEFTEYE SCH ×3 (08:29→17:51)
[2019-02-15] MEDS: MOXIFLOXACIN 0.5% RIGHTEYE SCH ×3 (08:30→17:51)
[2019-02-15] MEDS: PREDNISOLONE 1% RIGHTEYE SCH ×3 (08:30→17:48)
[2019-02-15] MEDS: [UNRECOGNIZED DRUG - OTHER] PO SCH ×2 (08:32→17:50)
[2019-02-15] MEDS: CARVEDILOL 12.5 MG TABLET PO SCH ×2 (08:34→17:48)
[2019-02-15] MEDS: hydrALAZINE HCL 50 MG TABLET PO SCH ×3 (08:34→17:48)
[2019-02-15] MEDS ORDERED: DOCU100C36 PO (09:03)
[2019-02-15] MEDS ORDERED: NITR100C11 PO (09:03)
[2019-02-15] MEDS ORDERED: HYDR50TA68 PO (09:03)
[2019-02-15 11:30] VITALS: BP 96/48
[2019-02-15 16:00] VITALS: BP 122/72
[2019-02-15 17:48] VITALS: BP 128/91
--- NOTE | 2019-02-15 18:15 | NUR ---
PATIENT RESTED INTERMITTENTLY THROUGHOUT DAY. PATIENT DENIES ANY PAIN AND DISCOMFORT THROUGHOUT SHIFT. PATIENT DENIES ANY DIZZINESS. SAFETY MEASURES PROVIDED. PATIENT TO BE DISCHARGED JUST AWAITING FOR PATIENTS RIDE.
[2019-02-17] MEDS ORDERED: METHOTREXATE SODIUM 2.5 MG TABLET PO SCH (09:00)
[2019-02-18] MEDS ORDERED: METHOTREXATE SODIUM 2.5 MG TABLET PO SCH (09:00)
== END 2019-02-15 19:00 | disposition home or self-care (01) | DRG 689 ==
LOC: ER 20:12 → TELE3 21:55 → MEDSURG3 02-14 11:15
PROVIDERS: ADMIT Nurse Practitioner Acute Care; ATTEND Nurse Practitioner Acute Care
DX: N39.0 Urinary tract infection, site not specified (principal); I21.A1 Myocardial infarction type 2; I50.22 Chronic systolic (congestive) heart failure; D68.59 Other primary thrombophilia; I48.19 Other persistent atrial fibrillation; J98.11 Atelectasis; E87.1 Hypo-osmolality and hyponatremia; I11.0 Hypertensive heart disease with heart failure; Z79.01 Long term (current) use of anticoagulants; M06.9 Rheumatoid arthritis, unspecified; I25.5 Ischemic cardiomyopathy; I25.10 Atherosclerotic heart disease of native coronary artery without angina pectoris; I25.82 Chronic total occlusion of coronary artery; Z86.73 Personal history of transient ischemic attack (TIA), and cerebral infarction without residual deficits; Z79.899 Other long term (current) drug therapy; Z90.49 Acquired absence of other specified parts of digestive tract; E87.6 Hypokalemia; E86.1 Hypovolemia; E78.5 Hyperlipidemia, unspecified; K59.00 Constipation, unspecified; I70.0 Atherosclerosis of aorta
CPT/HCPCS: 36415; 70030-TC; 71045; 83735; 84100; 84300; 84443; 85025; 87040; 87086; 93005; 93307; A4663; C1758; G0378; J0696; J2185; J3475; J3490; J7040; J8597

== ENCOUNTER 2021-03-30 13:59 | Emergency (ER) | payer OTHER ==
[~2021-03-30] VITALS: Ht 157.5 cm; Wt 69.4 kg
[~2021-03-30 13:59] MED LIST changes: +BESI5DRO EACHEYE; -CARV25TA2 PO; +DIFL5DRO OP; +DOCU100C36 PO; -FOLI1TAB16 PO; +FOLI1TAB94 PO; +HYDR50TA68 PO; -LORA10TA7 PO; -LOSA25TA27 PO; -MECL-102 PO; +MOXI3DRO10 RIGHTEYE; +NEPA1.7D OP; +NITR100C11 PO; -NITR100C6 PO; -OXYB5TAB4 PO; +PRED5DRO16 RIGHTEYE
[2021-03-30] MEDS ORDERED: HYDROCODONE/APAP 5-325MG TABLET PO ONE (14:30)
[2021-03-30] MEDS ORDERED: HYDROCODONE/APAP 5-325MG TABLET ONE (14:50)
[2021-03-30] MEDS ORDERED: LIDO700A30 TP (16:19)
--- NOTE | 2021-03-30 16:22 | NUR ---
Patient discharged to home in stable condition. Written and verbal after care instructions given. Patient verbalizes understanding of instructions. Stressed follow up or return to ER for worsening s/s.pt accompanied by daughter
[2021-03-30 16:23] VITALS: BP 131/61
== END 2021-03-30 16:24 | disposition home or self-care (01) ==
LOC: ER 13:59
DX: M54.50 Low back pain, unspecified (principal); I48.91 Unspecified atrial fibrillation; I25.2 Old myocardial infarction; I10 Essential (primary) hypertension; Z90.49 Acquired absence of other specified parts of digestive tract; Z86.73 Personal history of transient ischemic attack (TIA), and cerebral infarction without residual deficits; Z91.81 History of falling
CPT/HCPCS: 72131; A4663

== ENCOUNTER 2021-04-09 10:31 | Emergency (ER) | payer OTHER ==
[~2021-04-09] VITALS: Ht 157.5 cm; Wt 63.5 kg
[~2021-04-09 10:31] MED LIST changes: +LIDO700A30 TP
--- NOTE | 2021-04-09 10:43 | NUR ---
Received pt 80 yrs old male c/o lower back pain unable to amublate hx fall down 3 weeks ago still painfull to walking
[2021-04-09] MEDS ORDERED: ONDANSETRON 4 MG/2 ML VIAL IV ONE (11:00)
[2021-04-09] MEDS ORDERED: MORPHINE SULFATE 2 MG/1 ML DISP.SYRIN IV ONE (11:00)
[2021-04-09] MEDS ORDERED: LABETALOL HCL 100 MG/20 ML VIAL IV ONE ×2 (11:00→12:30)
--- NOTE | 2021-04-09 11:00 | NUR ---
here see and examin pt condition spook with pt and doughter inserted ango cathter # [address] on [address] ac blood drow and sent to lab bp 197/104mmhg Labetalol 10mg ivp given morphin 2mg for pain nd zofran 4mg ivp give
[2021-04-09] MEDS ORDERED: LABETALOL HCL 100 MG/20 ML VIAL ONE ×2 (11:03→11:04)
[2021-04-09] MEDS ORDERED: ONDANSETRON 4 MG/2 ML VIAL ONE (11:03)
[2021-04-09] MEDS ORDERED: MORPHINE SULFATE 2 MG/1 ML DISP.SYRIN ONE (11:04)
[2021-04-09] MEDS ORDERED: IV NORMAL SALINE 250 ML IV ONE (11:06)
[2021-04-09] MEDS ORDERED: SWABABLE VALVE TRANSFER SET EA MC ONE (11:06)
[2021-04-09] MEDS ORDERED: IOHEXOL 350 100 ML INFUS..BTL ONE (11:06)
[2021-04-09 11:38] LABS: CARBON DIOXIDE 28 mmol/L (21-32); CHLORIDE 96 mmol/L (98-107); CREATININE 0.8 mg/dL (0.6-1.3); GLUCOSE 111 mg/dL (74-106); POTASSIUM 3.3 mmol/L (3.5-5.1); UREA NITROGEN, BLOOD 17 mg/dL (7-18)
[2021-04-09 11:41] LABS: HEMATOCRIT 42.6 % (31.2-41.9); MEAN CORPUSCULAR HEMOGLOBIN 32.3 uug (24.7-32.8); MEAN CORPUSCULAR VOLUME 93.7 fL (75.5-95.3); PLATELET COUNT (AUTO) 251 K/uL (179-408)
[2021-04-09 11:44] LABS: ALANINE AMINOTRANSFERASE 27 U/L (14-59); ALKALINE PHOSPHATASE 84 U/L (50-136); ASPARTATE AMINOTRANSFERASE 25 U/L (15-37); BILIRUBIN,DIRECT < 0.1 mg/dL (0.0-0.2); BILIRUBIN,TOTAL 0.6 mg/dL (0.2-1.0); TOTAL PROTEIN, SERUM 8.6 g/dL (6.4-8.2)
--- NOTE | 2021-04-09 12:00 | NUR ---
to ct scan with and without contrast via garny awake and alert
--- NOTE | 2021-04-09 12:30 | NUR ---
Back from ct aimee christina pocedure vs checked bp 163/81mg
--- NOTE | 2021-04-09 14:00 | NUR ---
covid test done postive Dr.souer gautam with coco and rufina
[2021-04-09] MEDS ORDERED: HYDR-4209 PO (14:15)
--- NOTE | 2021-04-09 15:03 | NUR ---
vs sable d/c instraction given to pt and rufina fully and verblized underst d/c home with RX and fallow up care no sob no pain noted
[2021-04-09 15:50] VITALS: BP 144/80
== END 2021-04-09 15:56 | disposition home or self-care (01) ==
LOC: ER 10:31
DX: M54.50 Low back pain, unspecified (principal); U07.1 COVID-19; R91.8 Other nonspecific abnormal finding of lung field; E87.6 Hypokalemia; Z90.49 Acquired absence of other specified parts of digestive tract; Z86.73 Personal history of transient ischemic attack (TIA), and cerebral infarction without residual deficits; I25.2 Old myocardial infarction; Z88.0 Allergy status to penicillin; I11.9 Hypertensive heart disease without heart failure; Z79.01 Long term (current) use of anticoagulants; I48.91 Unspecified atrial fibrillation
CPT/HCPCS: 36415; 71275; 74174; 80048; 80076; 85025; 86850; 86900; 86901; 87426; 96374; 96375; 96376; 99291; J2270; J2405; J3490 ×2; Q9967; A4663; J7050

== ENCOUNTER 2021-05-09 16:59 | Emergency (ER) | payer OTHER ==
[~2021-05-09] VITALS: Ht 157.5 cm; Wt 63.5 kg
[~2021-05-09 16:59] MED LIST changes: +HYDR-4209 PO; -NITR100C11 PO; -PRED5DRO16 RIGHTEYE
--- NOTE | 2021-05-09 18:15 | NUR ---
Attempted to bring pt to room 2B, pt was not found in ER waiting room or outside ER.
== END 2021-05-09 18:49 | disposition left against medical advice (07) ==
LOC: ER 17:01
DX: Z53.21 Procedure and treatment not carried out due to patient leaving prior to being seen by health care provider (principal)

== ENCOUNTER 2021-08-31 19:13 | Inpatient (IN) | payer MEDICARE, OTHER ==
[~2021-08-31] VITALS: Ht 157.5 cm; Wt 59.9 kg
--- NOTE | 2021-08-31 22:10 | NUR ---
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
[2021-08-31] MEDS ORDERED: HYDROMORPHONE HCL 2 MG TABLET PO ONE (22:30)
[2021-08-31] MEDS ORDERED: ACETAMINOPHEN ES 500 MG TABLET PO ONE (22:30)
[2021-08-31] MEDS ORDERED: ONDANSETRON ODT 4 MG TAB.RAPDIS SL ONE (22:30)
[2021-08-31] MEDS ORDERED: ONDANSETRON ODT 4 MG TAB.RAPDIS ONE (22:38)
[2021-08-31] MEDS ORDERED: ACETAMINOPHEN ES 500 MG TABLET ONE (22:38)
[2021-08-31] MEDS ORDERED: HYDROMORPHONE HCL 2 MG TABLET ONE (22:38)
[2021-08-31 22:49] LABS: HEMATOCRIT 37.1 % (31.2-41.9); MEAN CORPUSCULAR HEMOGLOBIN 32.8 uug (24.7-32.8); MEAN CORPUSCULAR VOLUME 92.9 fL (75.5-95.3); PLATELET COUNT (AUTO) 258 K/uL (179-408)
[2021-08-31 23:08] LABS: ALANINE AMINOTRANSFERASE 27 U/L (14-59); ALKALINE PHOSPHATASE 81 U/L (50-136); ASPARTATE AMINOTRANSFERASE 25 U/L (15-37); BILIRUBIN,DIRECT 0.3 mg/dL (0.0-0.2); BILIRUBIN,TOTAL 1.4 mg/dL (0.2-1.0); CARBON DIOXIDE 26 mmol/L (21-32); CHLORIDE 87 mmol/L (98-107); CREATININE 0.6 mg/dL (0.6-1.3); GLUCOSE 93 mg/dL (74-106); TOTAL PROTEIN, SERUM 7.7 g/dL (6.4-8.2); UREA NITROGEN, BLOOD 10 mg/dL (7-18)
[2021-08-31] MEDS ORDERED: ASPIRIN 81 MG TAB.CHEW PO ONE (23:15)
[2021-08-31] MEDS ORDERED: NITROGLYCERIN OINT 1 GM PACKET TP ONE ×2 (23:15→23:30)
[2021-08-31 23:17] LABS: POTASSIUM 2.8 mmol/L (3.5-5.1)
--- NOTE | 2021-08-31 23:21 | NUR ---
Epic panel call placed, spoke to Meaghan , she stated she will get a hold of Satish Crabtree for admitting.
[2021-08-31] MEDS ORDERED: ASPIRIN 81 MG TAB.CHEW ONE (23:29)
[2021-08-31] MEDS ORDERED: POTASSIUM CHLORIDE 20 MEQ TAB.PRT.SR ONE (23:30)
[2021-08-31] MEDS ORDERED: IV 0.9% SODIUM CHLORID+ 20 KCL 1,000 ML IV ONE (23:30)
[2021-08-31] MEDS ORDERED: POTASSIUM CHLORIDE 20 MEQ TAB.PRT.SR PO ONE (23:30)
[2021-08-31] MEDS ORDERED: IV 0.9% SODIUM CHLORID+ 20 KCL 1,000 ML ONE (23:32)
--- NOTE | 2021-08-31 23:42 | NUR ---
Dr. Shi on panel call with COMMERCIAL LOAN OFFICER [place]. Patient accepted for admission to tele unit Dx. ST
[2021-08-31] MEDS ORDERED: REMEDY ESSENTIAL ZINC PASTE 113 GM TP PRN (23:45)
[2021-08-31] MEDS ORDERED: MAGNESIUM HYDROXIDE 30 ML LIQUID UDC PO PRN (23:45)
[2021-08-31] MEDS ORDERED: IV NS 1000 ML 1,000 ML IV PRN (23:45)
[2021-09-01] VITALS (8 sets, daily range): BP systolic 91–145; BP diastolic 59–85
[2021-09-01] MEDS ORDERED: IV 1/2 NS + KCL 20 MEQ BAG 1,000 ML IV PRN
[2021-09-01] MEDS ORDERED: LINA145C PO (00:03)
[2021-09-01] MEDS ORDERED: ISOS60TA72 PO (00:03)
[2021-09-01] MEDS ORDERED: METH2.5T PO (00:03)
[2021-09-01] MEDS ORDERED: ACET-73 PO (00:03)
[2021-09-01] MEDS ORDERED: QUET25TA PO ×2 (00:03→12:07)
[2021-09-01] MEDS ORDERED: LOSA1TAB39 PO (00:03)
[2021-09-01] MEDS ORDERED: PANT40TA49 PO (00:03)
[2021-09-01] MEDS ORDERED: SENN-261 PO (00:03)
[2021-09-01] MEDS ORDERED: AMLO2.5T4 PO (00:03)
[2021-09-01] MEDS ORDERED: HYDR-894 PO (00:03)
[2021-09-01] MEDS ORDERED: BACL10TA PO (00:03)
[2021-09-01] MEDS ORDERED: LORA0.5T48 PO (00:03)
[2021-09-01] MEDS ORDERED: GABA-532 PO (00:03)
[2021-09-01] MEDS ORDERED: LEVO50TA8 PO (00:03)
[2021-09-01] MEDS ORDERED: MORP15TA PO (00:03)
--- NOTE | 2021-09-01 01:56 | NUR ---
Pt. admitted to tele overflow room CCU5, under care of TOOTH CUTTER SPUR Satish Arias Belongs List completed.
--- NOTE | 2021-09-01 02:00 | NUR ---
RECEIVED FROM ER DX: NSTEMI , PER PATIENT SHE CAME C/O LOW BACK PAIN THAT RADIATES TO HER CHEST .AAOX4 SPEAK SWEDISH AND THAI .PATIENT DENIES CHEST PAIN . CONNECTED TO HEART MONITOR AFIB RATE 55 TO 63 AND ORIENTED WITH ROOM AND CALL MARTINEZ. ROOM AIR NO RESPIRATORY DISTRESS NOTED . ADMITTED PATIENT DATA COLLECTED FROM PATIENT AND CHART .
[2021-09-01] MEDS: ACETAMINOPHEN 325 MG TABLET PO PRN (02:19)
--- NOTE | 2021-09-01 02:45 | NUR ---
PATIENT VERBALIZED SHE WANTS HER LEFT AC HEPLOCK D/C PER PATIENT IT HURTS ,REMOVED LEFT AC H/L AND PLACED NEW H/L NO 22 LEFT HAND.
[2021-09-01] MEDS: ONDANSETRON 4 MG/2 ML VIAL IV PRN ×2 (02:55→08:56)
[2021-09-01 05:18] LABS: HEMATOCRIT 33.8 % (31.2-41.9); MEAN CORPUSCULAR HEMOGLOBIN 33.6 uug (24.7-32.8); MEAN CORPUSCULAR VOLUME 92.7 fL (75.5-95.3); PLATELET COUNT (AUTO) 241 K/uL (179-408)
--- NOTE | 2021-09-01 05:30 | NUR ---
INCONTINENT OF URINE, AM CARE DONE CHANGED SOILED LINENS AND GOWN , TURNED AND REPOSITION PATIENT .
[2021-09-01 06:31] LABS: CREATININE 0.9 mg/dL (0.6-1.3); MAGNESIUM 1.4 mg/dL (1.8-2.4); PHOSPHOROUS 4.3 mg/dL (2.5-4.9); POTASSIUM 3.5 mmol/L (3.5-5.1)
[2021-09-01] MEDS ORDERED: IOHEXOL 350 100 ML INFUS..BTL ONE (08:22)
[2021-09-01] MEDS ORDERED: IV NORMAL SALINE 250 ML IV ONE (08:22)
[2021-09-01] MEDS ORDERED: SWABABLE VALVE TRANSFER SET EA MC ONE (08:22)
[2021-09-01] MEDS ORDERED: MORPHINE SULFATE 2 MG/1 ML DISP.SYRIN IV ONE (08:30)
[2021-09-01] MEDS ORDERED: ASPIRIN 81 MG TAB.CHEW PO SCH (09:00)
[2021-09-01] MEDS: MAGNESIUM SULFATE/D5W 100 ML IV SCH ×4 (09:29→12:17)
[2021-09-01] MEDS ORDERED: POTASSIUM CHLORIDE 20 MEQ POWDER PACKET PO ONE (09:30)
[2021-09-01] MEDS: LOSARTAN POTASSIUM 50 MG TABLET PO SCH (10:05)
[2021-09-01] MEDS: APIXABAN 5 MG TABLET PO SCH ×2 (10:06→21:02)
[2021-09-01] MEDS: IV NS 1000 ML 1,000 ML IV PRN ×2 (11:31→23:36)
[2021-09-01] MEDS ORDERED: ALEN70TA80 PO (12:07)
[2021-09-01] MEDS ORDERED: MECL-159 PO (12:07)
[2021-09-01] MEDS ORDERED: ISOS30TA86 PO (12:07)
[2021-09-01] MEDS ORDERED: LOSA25TA27 PO (12:07)
[2021-09-01] MEDS ORDERED: HYDR-3976 PO (12:07)
[2021-09-01] MEDS ORDERED: LEVO25TA9 PO (12:07)
[2021-09-01] MEDS ORDERED: LORA-259 PO (12:07)
[2021-09-01] MEDS ORDERED: NITR0.4T48 SL (12:07)
[2021-09-01] MEDS ORDERED: NITROGLYCERIN 0.4 MG/TAB BOTTLE SL PRN (13:45)
[2021-09-01] MEDS: GABAPENTIN 100 MG CAPSULE PO SCH ×2 (14:42→17:18)
[2021-09-01] MEDS: hydrALAZINE HCL 25 MG TABLET PO SCH ×2 (14:43→17:21)
[2021-09-01] MEDS: BACLOFEN 10 MG TABLET PO SCH (17:17)
[2021-09-01] MEDS: DOCUSATE SODIUM 100 MG CAPSULE PO SCH (17:18)
[2021-09-01] MEDS: SENNOSIDES 1 TABLET PO SCH (17:18)
[2021-09-01] MEDS: QUETIAPINE FUMARATE 25 MG TABLET PO SCH (17:22)
[2021-09-01] MEDS: CARVEDILOL 6.25 MG TABLET PO SCH (18:24)
--- NOTE | 2021-09-01 20:00 | NUR ---
patient in bed when room made . AAOX3. NO respiratory distress on room iar saturation 95% rr 18. when asked patient denies pain ,afib on the heart monitor rate 67 f/c to bsd with yellowish urine . call light placed with in reach ,advised patient to call for help .
--- NOTE | 2021-09-01 20:30 | NUR ---
patient requested extra blanket. checked temp 97.9 F orally .
[2021-09-01] MEDS: ATORVASTATIN 40 MG TABLET PO SCH (21:02)
--- NOTE | 2021-09-01 21:47 | NUR ---
due medication given and patient tolerated po medication with applejuice .
--- NOTE | 2021-09-01 22:30 | NUR ---
sleeping in bed ,easily arousable ,denies chest pain . wants tv off and patient verbalized she wants to sleep. placed call light and advised to call for assistance .
[2021-09-02] VITALS: BP 91/64
--- NOTE | 2021-09-02 02:30 | NUR ---
sleeping no s/s of DISTRESS .breathing even and unlabored .
[2021-09-02 04:22] VITALS: BP 99/58
--- NOTE | 2021-09-02 05:00 | NUR ---
morning care done ,bath patient ,perineal and Steve care done.changed soiled linens and gown . patient able to help in turning .
[2021-09-02 05:17] LABS: CARBON DIOXIDE 25 mmol/L (21-32); CHLORIDE 101 mmol/L (98-107); CREATININE 0.7 mg/dL (0.6-1.3); GLUCOSE 83 mg/dL (74-106); MAGNESIUM 2.1 mg/dL (1.8-2.4); POTASSIUM 3.7 mmol/L (3.5-5.1); UREA NITROGEN, BLOOD 10 mg/dL (7-18)
[2021-09-02] MEDS: LEVOTHYROXINE SODIUM 25 MCG TABLET PO SCH (06:55)
[2021-09-02 08:00] VITALS: BP 117/76
[2021-09-02] MEDS: CARVEDILOL 6.25 MG TABLET PO SCH ×2 (08:15→17:27)
[2021-09-02] MEDS: GABAPENTIN 100 MG CAPSULE PO SCH ×3 (08:15→16:20)
[2021-09-02] MEDS: QUETIAPINE FUMARATE 25 MG TABLET PO SCH ×2 (08:16→17:28)
[2021-09-02] MEDS: DOCUSATE SODIUM 100 MG CAPSULE PO SCH ×2 (08:16→16:20)
[2021-09-02] MEDS: hydrALAZINE HCL 25 MG TABLET PO SCH (08:16)
[2021-09-02] MEDS: LOSARTAN POTASSIUM 50 MG TABLET PO SCH (08:16)
[2021-09-02] MEDS: APIXABAN 5 MG TABLET PO SCH ×2 (08:16→20:08)
[2021-09-02] MEDS: BACLOFEN 10 MG TABLET PO SCH ×3 (08:16→16:20)
[2021-09-02] MEDS: LIDOCAINE 5% PATCH TD SCH (08:17)
[2021-09-02] MEDS: PANTOPRAZOLE SODIUM 40 MG TABLET.DR PO SCH (08:18)
[2021-09-02] MEDS: SENNOSIDES 1 TABLET PO SCH ×2 (08:18→16:21)
[2021-09-02] MEDS ORDERED: ISOSORBIDE MONONITRATE 30 MG TAB.SR.24H PO SCH (09:00)
[2021-09-02 09:41] LABS: *BILIRUBIN,URIN NEGATIVE (NEGATIVE); *COLOR,URINE LIGHT YELLOW (YELLOW); *KETONES,URINE NEGATIVE (NEGATIVE); *UROBILINOGEN,URINE 0.2 E.U./dl (NORMAL); LEUKOCYTE ESTERASE ,URINE 3+ (NEGATIVE); NITRITE, URINE POSITIVE (NEGATIVE); UGLUCOSE NEGATIVE (NEGATIVE)
[2021-09-02 09:47] LABS: *CLARITY,URINE HAZY (CLEAR)
[2021-09-02 09:50] LABS: *BLOOD, URINE TRACE (NEGATIVE)
[2021-09-02 09:51] LABS: BACTERIA,URINE MODERATE /HPF (NONE SEEN); RBC,URINE 0-3 /HPF (0-3); SQUAMOUS EPITHELIAL CELL,UR FEW /HPF (NONE SEEN); WBC,URINE 20-50 /HPF (0-3)
[2021-09-02 12:00] VITALS: BP 92/48
[2021-09-02] MEDS: ACETAMINOPHEN 325 MG TABLET PO PRN (12:14)
[2021-09-02] MEDS: IV NS 1000 ML 1,000 ML IV PRN (13:44)
[2021-09-02 16:00] VITALS: BP 127/50
--- NOTE | 2021-09-02 19:00 | NUR ---
Received report. Patient is awake, resting comfortably. A fib on the monitor, HR 71. Denies pain at this time. RA. No signs of acute distress noted. Checked IV site patent and flushed with ongoing NS @75mls/hr. No erythema, bleeding or infiltration noted. Steve catheter draining well to gravity. Bed at lowest position, brakes on, siderails x2. Call light within reach. Will continue to monitor closely.
[2021-09-02 20:00] VITALS: BP 102/59
[2021-09-02] MEDS: ATORVASTATIN 40 MG TABLET PO SCH (20:08)
[2021-09-03] VITALS: BP 99/50
--- NOTE | 2021-09-03 00:10 | NUR ---
Resting comfortably. No significant change of condition noted. Will continue to monitor closely.
[2021-09-03] MEDS: IV NS 1000 ML 1,000 ML IV PRN ×2 (02:14→19:35)
[2021-09-03 04:00] VITALS: BP 135/69
--- NOTE | 2021-09-03 05:41 | NUR ---
AM care done. Linen changed.
[2021-09-03] MEDS: PANTOPRAZOLE SODIUM 40 MG TABLET.DR PO SCH (06:25)
[2021-09-03] MEDS: LEVOTHYROXINE SODIUM 25 MCG TABLET PO SCH (06:26)
--- NOTE | 2021-09-03 06:33 | NUR ---
Left patient asleep, VSS, NAD.
[2021-09-03 08:00] VITALS: BP 132/65
[2021-09-03] MEDS: QUETIAPINE FUMARATE 25 MG TABLET PO SCH ×2 (08:25→17:23)
[2021-09-03] MEDS: SENNOSIDES 1 TABLET PO SCH ×2 (08:27→17:23)
[2021-09-03] MEDS: GABAPENTIN 100 MG CAPSULE PO SCH ×3 (08:27→17:23)
[2021-09-03] MEDS: BACLOFEN 10 MG TABLET PO SCH ×3 (08:27→17:23)
[2021-09-03] MEDS: DOCUSATE SODIUM 100 MG CAPSULE PO SCH ×2 (08:27→17:23)
[2021-09-03] MEDS: APIXABAN 5 MG TABLET PO SCH ×2 (08:27→20:27)
[2021-09-03] MEDS: CARVEDILOL 6.25 MG TABLET PO SCH ×2 (08:28→17:23)
[2021-09-03] MEDS: LIDOCAINE 5% PATCH TD SCH (08:36)
[2021-09-03] MEDS ORDERED: FOLIC ACID 1 MG TABLET PO SCH (09:00)
[2021-09-03] MEDS ORDERED: MORPHINE SULFATE IR 30 MG TABLET PO PRN (10:45)
[2021-09-03] MEDS ORDERED: NITROGLYCERIN 0.4 MG/TAB BOTTLE SL PRN (10:58)
[2021-09-03 12:00] VITALS: BP 148/65
--- NOTE | 2021-09-03 14:17 | NUR ---
Report given to Surekha who will be taking over the patient.
--- NOTE | 2021-09-03 14:30 | NUR ---
Received pt from ICU. Pt is in no acute distress. Pt denies any c/o pain. Tele afib.
[2021-09-03 15:56] VITALS: BP 153/61
--- NOTE | 2021-09-03 18:35 | NUR ---
Pt is in no acute distress. Call light is within reach.
[2021-09-03] MEDS: ATORVASTATIN 40 MG TABLET PO SCH (20:26)
[2021-09-03 20:31] VITALS: BP 146/62
[2021-09-04 04:00] VITALS: BP 141/67
[2021-09-04] MEDS: PANTOPRAZOLE SODIUM 40 MG TABLET.DR PO SCH (06:00)
[2021-09-04] MEDS: LEVOTHYROXINE SODIUM 25 MCG TABLET PO SCH (06:00)
--- NOTE | 2021-09-04 08:00 | NUR ---
AWAKE ALERT AND ORIENTED X3, DENIES SOB BUT CHRONIC PAIN ON THE BACK. CONTINUE ROUTINE PAIN MEDS ORDERED. AFIB ON MONITOR
[2021-09-04] MEDS: LIDOCAINE 5% PATCH TD SCH (08:38)
[2021-09-04] MEDS: QUETIAPINE FUMARATE 25 MG TABLET PO SCH (08:39)
[2021-09-04] MEDS: GABAPENTIN 100 MG CAPSULE PO SCH ×2 (08:39→12:52)
[2021-09-04] MEDS: DOCUSATE SODIUM 100 MG CAPSULE PO SCH (08:39)
[2021-09-04] MEDS: BACLOFEN 10 MG TABLET PO SCH ×2 (08:40→12:52)
[2021-09-04] MEDS: CARVEDILOL 6.25 MG TABLET PO SCH (08:40)
[2021-09-04] MEDS: APIXABAN 5 MG TABLET PO SCH (08:40)
[2021-09-04] MEDS: SENNOSIDES 1 TABLET PO SCH (08:41)
[2021-09-04] MEDS: IV NS 1000 ML 1,000 ML IV PRN (08:44)
[2021-09-04] MEDS ORDERED: LOSARTAN POTASSIUM 50 MG TABLET PO SCH (09:00)
[2021-09-04 12:00] VITALS: BP 115/79
--- NOTE | 2021-09-04 12:00 | NUR ---
NO ACUTE CHANGE FROM MORNING ASSESSMENT
--- NOTE | 2021-09-04 14:14 | NUR ---
AWAITING PLACEMENT FOR DISCHARGE. DENIES ACUTE PAIN. CONTROLLED AFIB ON MONITOR
--- NOTE | 2021-09-04 16:16 | NUR ---
discharged to [facility] via ambulance. report given to RAYA SUAREZ
[2021-09-06] MEDS ORDERED: METHOTREXATE SODIUM 2.5 MG TABLET PO SCH (09:00)
== END 2021-09-04 16:15 | DRG 551 ==
LOC: ER 19:14 → CCU 09-01 01:29 → TELE3 09-03 14:18
DX: M54.59 Other low back pain (principal); I21.A1 Myocardial infarction type 2; E87.1 Hypo-osmolality and hyponatremia; I48.20 Chronic atrial fibrillation, unspecified; E87.6 Hypokalemia; E03.9 Hypothyroidism, unspecified; E78.5 Hyperlipidemia, unspecified; E86.1 Hypovolemia; G89.4 Chronic pain syndrome; H40.9 Unspecified glaucoma; I25.10 Atherosclerotic heart disease of native coronary artery without angina pectoris; I25.2 Old myocardial infarction; Z79.01 Long term (current) use of anticoagulants; Z86.73 Personal history of transient ischemic attack (TIA), and cerebral infarction without residual deficits; Z20.822 Contact with and (suspected) exposure to COVID-19; Z88.0 Allergy status to penicillin; I10 Essential (primary) hypertension; M77.8 Other enthesopathies, not elsewhere classified; Z79.891 Long term (current) use of opiate analgesic; T50.2X5A Adverse effect of carbonic-anhydrase inhibitors, benzothiadiazides and other diuretics, initial encounter; Y92.009 Unspecified place in unspecified non-institutional (private) residence as the place of occurrence of the external cause; M54.12 Radiculopathy, cervical region; Z79.899 Other long term (current) drug therapy
CPT/HCPCS: 36415; 71101; 83735; 84100; 84484; 85025; 87077; 87086; 93005; 93307; 97161; A4663; A9150; G0378; J2270; J2405; J3475; J3490; J7040; Q0162; Q9967